=== PATIENT | male | born 1990 | race Two or more races ===

== ENCOUNTER 2018-03-28 16:57 | Emergency (ER) | payer SELFPAY ==
[~2018-03-28] VITALS: Ht 188 cm; Wt 80.0 kg
[2018-03-28] MEDS ORDERED: IBUPROFEN 400MG TABLET PO ONE (17:15)
[2018-03-28] MEDS ORDERED: IBUPROFEN 600MG TABLET PO NR (20:30)
[2018-03-28 21:52] VITALS: BP 109/66
== END 2018-03-28 21:52 | disposition home or self-care (01) ==
LOC: ER 16:57
DX: R51 Headache (principal); R55 Syncope and collapse; F12.10 Cannabis abuse, uncomplicated; J45.909 Unspecified asthma, uncomplicated
CPT/HCPCS: 70450; 99284

== ENCOUNTER 2018-07-11 09:30 | Emergency (ER) | payer SELFPAY ==
[~2018-07-11] VITALS: Ht 188 cm; Wt 84.0 kg
[2018-07-11 09:42] VITALS: BP 124/74
== END 2018-07-11 11:27 | disposition home or self-care (01) ==
LOC: ER 09:56
DX: H60.11 Cellulitis of right external ear (principal); K08 Other disorders of teeth and supporting structures; J45.909 Unspecified asthma, uncomplicated; F17.200 Nicotine dependence, unspecified, uncomplicated; F12.10 Cannabis abuse, uncomplicated
CPT/HCPCS: 99283